=== PATIENT | male | born 1965 | race Caucasian/White ===

== ENCOUNTER 2019-05-23 10:56 | Emergency (ER) | payer OTHER ==
[~2019-05-23] VITALS: Ht 188 cm; Wt 120.2 kg
[2019-05-23] MEDS ORDERED: IBUPROFEN 800800 M1 PO (11:20)
[2019-05-23] MEDS ORDERED: PENICILLIN V P500 MG PO (11:20)
[2019-05-23] MEDS ORDERED: NORCO 5-325 TA1 EAC1 PO (11:20)
[2019-05-23 11:24] VITALS: BP 144/98
== END 2019-05-23 11:24 | disposition home or self-care (01) ==
LOC: M.ERS 10:56
DX: K04.7 Periapical abscess without sinus (principal)